=== PATIENT | female | born 1960 | race Caucasian/White ===

== ENCOUNTER → 2024-11-19 09:04 | Outpatient (REF) | payer OTHER, SELFPAY | LOC: RCS 09:04 | PROVIDERS: ATTENDING PHYSICIAN Nurse Practitioner; FAMILY PHYSICIAN Family Medicine; OTHER PHYSICIAN Internal Medicine Cardiovascular Disease | DX: R00.2 Palpitations (principal) | CPT/HCPCS: 93306 ==

== ENCOUNTER → 2024-11-21 08:02 | Outpatient (REF) | payer OTHER, SELFPAY | LOC: RCS 08:02 | PROVIDERS: ATTENDING PHYSICIAN Nurse Practitioner; FAMILY PHYSICIAN Family Medicine; REFERRING PHYSICIAN Internal Medicine Cardiovascular Disease | DX: R07.89 Other chest pain (principal) | CPT/HCPCS: 93017; 93350 ==

== ENCOUNTER 2025-05-18 15:30 | Emergency (ER) | payer MEDICARE, OTHER, SELFPAY ==
[2025-05-18 15:46] VITALS: BP 140/95
--- NOTE | 2025-05-18 18:04 | ED.GENMED ---
History of Present Illness
General
Chief Complaint: DVT/Possible Blood Clot
Source: patient
Exam Limitations: none
Time Seen by Provider: 05/18/25 17:12
Nursing documentation reviewed up to this point in time: agreed with
History of Present Illness
History of Present Illness:
see MDM
Review of Systems
Review of Systems
Allergies reviewed?: Yes
All Other Systems: Not applicable
Phy Exam
Physical Exam
Physical Exam:
GENERAL: Alert , in no apparent distress, comfortable at rest
HEAD: NCAT
CV: 2+ DP PULSES B/L no crackles,
NEUROLOGICAL: Alert and oriented, no focal neuro deficits, , 5/5 strength, sensation intact, ambulation slight limp right leg
SKIN: Warm and dry, very minimal pink skin chnages, L lowre extremity
MUSCULOSKELETAL: Circumferential severe edema of the left ankle and foot, some mild edema that is pitting to the left lower extremity below the knee, nontender except with palpation to the ankle and some stiffness with range of motion of the ankle
on the left side, there is a great pulse and cap refills intact
PSYCH: Normal and appropriate interaction.
Course
Orders/Labs/Results
Orders:
Orders
05/18/25 15:53
US Periph Venous LOWER Ext LT Urgent
Comment:
Reason For Exam: Swelling and pain
05/18/25 17:58
Ankle, left 3 view CR [CR Ankle - Left Min 3 Views ] Urgent
Comment:
Reason For Exam: left ankle edema
05/18/25 17:59
CR Chest - 2 Views Urgent
Comment:
Reason For Exam: LLE edema
05/18/25 18:08
Complete Blood Count/With Diff Urgent
Comprehensive Metabolic Panel Urgent
NT-proBNP Urgent
Uric Acid Urgent
05/18/25 19:12
Cephalexin Monohydrate [Keflex] 500 mg PO NOW STA
05/18/25 18:08
05/18/25 18:08
Vital Signs
Initial and Last Documented VS:
Initial Vital Signs
Temp Pulse Resp BP Pulse Ox
37.3 C 74 16 140/95 98
05/18/25 15:46 05/18/25 15:46 05/18/25 15:46 05/18/25 15:46 05/18/25 15:46
Last Documented Vital Signs
Temp Pulse Resp BP Pulse Ox
37.3 C 74 16 140/95 98
05/18/25 15:46 05/18/25 15:46 05/18/25 15:46 05/18/25 15:46 05/18/25 18:05
MDM/Problems Addressed
Differential Diagnosis Includes:
ssee MDM
MDM/Problems Addressed:
Note:
CHIEF COMPLAINT(S)
Swelling and pain in the left foot and leg.
HISTORY OF PRESENT ILLNESS
The patient is a 65-year-old female who presents with a one-month history of left foot swelling, noted initially in the foot and subsequently extending up the leg. Associated with the swelling is significant pain, now involving the ankle, described
as 'unbelievable pain to walk.' The swelling and pain are particularly worse during the day, showing some improvement overnight, but not resolving completely. The leg has also progressively felt hot, but without itchiness. There is no history of
trauma recalled by the patient, though she has a history of a prior foot fracture.
T The patient described previous experiences of similar symptoms occurring years ago but it was both ankles were swollen, which eventually resolved. 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
episodes of syncope. She takes Atenolol and Duloxetine, and not currently on any anticoagulants.
just started mounjaro
PAST MEDICAL AND SURGICAL HISTORY
The patient has a pacemaker for atrial fibrillation and a past history of syncope episodes.
CHRONIC MEDICAL CONDITIONS SIGNIFICANTLY AFFECTING CARE
The patient has a history of atrial fibrillation and bradycardia.
MEDICATIONS
- Atenolol (half dose)
- Duloxetine
- Various supplements (not specified)
- No anticoagulants
PHYSICAL EXAM
- Nursing notes reviewed and vital signs reviewed.
- fairly severe foot/ankle swlling, mild calf swelling, very faint pink skin of the LLE, with warmth; no wounds; nontender to calf, mild pain with ankle ROM
There is no evidence of arterial circulation compromise.
PLAN
- Obtain x-ray of the ankle to rule out fracture or other bony abnormalities.
- Obtain chest x-ray to check for fluid accumulation.
- Perform blood work to assess kidney function, electrolytes, and infection markers.
- Consider starting antibiotics based on clinical assessment and test results.
- Recommend non-admission, pending test results, with outpatient follow-up and consultation with bar welder for venous studies.
There is concern for potential venous insufficiency causing peripheral edema, but cellulitis is considered a possibility due to the warmth of the leg, although the examination suggested that increased warmth could be venous stasis-related. The
patient also experienced redness in the skin but believes this is due to peripheral edema. No symptoms suggestive of systemic infection or heart failure were noted.
The plan includes further evaluation through x-rays of the ankle and chest, blood work including kidney function tests and complete blood count, and possibly starting antibiotics if indicated by test results.
DIFFERENTIAL DIAGNOSIS
The Differential Diagnosis includes, in no particular order and is not limited to:
1. Venous insufficiency
2. Cellulitis
3. Gout
4. Pseudo-gout
5. Deep vein thrombosis (ruled out by ultrasound)
6. Heart failure (less likely due to unilateral swelling)
7. Traumatic injury
8. Rheumatoid arthritis
9. Lymphedema
10. Peripheral neuropathy
CARE-UPDATE
05/18/25 - 19:37
A recent evaluation revealed no acute fracture in the patients ankle, though there is evidence of a past minor injury with a tiny cortical separation. The absence of calcium deposition rules out pseudo gout. The patients chest is clear, heart size
is normal, kidneys are functioning properly, and there are no signs of congestive heart failure. The swelling is likely due to peripheral edema, with prolonged blood pooling turning the area red and warm. Dermatitis is suspected, but not an active
infection, as the white blood cell count is normal and there is no fever. Keflex, an antibiotic, has been prescribed twice daily for preventive reasons. Recommend wearing a compression stocking and consulting a vascular specialist for further
assessment. A water pill is not currently advised due to the unilateral nature of the swelling. Monitoring the condition for potential skin cracks and infection is advised.
*Pulse Oximetry
SaO2: 98
Oxygen Mode of Delivery: Room air
Patient hypoxic: no (98)
*Critical Care Note
Total Time (30-74mins, 75-104mins- exclusive of procedures): Not Applicable
ED Attending Note
-
Portions of this chart may have been created with voice recognition software.� Occasional wrong word or��sound alike� substitutions may have occurred due to the inherent limitations of voice recognition software.
Discharge Plan
Departure
Patient Disposition: Home (Routine Discharge)
Date of Disposition: 05/18/25
Time of Disposition: 19:26
Patient with high blood pressure during this ER visit?: No
Condition: Fair
Covid-19: Not Applicable
Discharge Problem:
Peripheral edema, Venous stasis dermatitis
Instructions: Swelling
Prescriptions:
New
cephalexin 500 mg capsule
500 mg PO Q8H Qty: 21 0RF
Referrals:
Jeremiah Huang DO [Family Provider, Family Practice] - Follow up in 2-3 days
Jeremiah Scott III, MD [Active, Vascular Surgery] - Follow up in 5-7 days
Activity Restrictions/Additional Instructions:
Provide entirely sure the cause of your symptoms but your workup here is very reassuring that this is not an infection. There is no blood clot. Try compression stockings during the day and take them off at night.
Just in case you are starting to get a cellulitis or skin infection I am starting you on antibiotics however I think this is really more of just blood pooling, something called venous stasis dermatitis. Watch for worsening of the redness, worsening
swelling or pain, fever, inability to walk and return for these. Otherwise you may need to see a vein specialist. Please call vascular doctor for follow-up. Return for any concerns
unti lyou get the compression stocking you can abimbola wrap your ankle
Interventions
Interventions:
*Risk Screen - Suicide Last Done: 05/18/25 18:19
*General Assessment Last Done: 05/18/25 18:19
*Neglect/Abuse Screening Last Done: 05/18/25 18:19
*ED- Fall Risk Assessment Last Done: 05/18/25 18:19
*ED COVID-19 Vaccine History Last Done: 05/18/25 18:19
*Nursing Disposition Last Done: 05/18/25 19:49
ED- Cardiac Assessment Last Done: 05/18/25 18:19
ED- Pulmonary Assessment Last Done: 05/18/25 18:19
ED-Peripheral Vascular Assessment Last Done: 05/18/25 18:19
ED-Skin Assessment Last Done: 05/18/25 18:19
Discharge Date and Time
Discharge Date/Time: 05/18/25 19:50
Print Language: ARMENIAN
[2025-05-18 18:23] LABS: Hematocrit 42.0 % (37.0-47.0); Hemoglobin 14.1 g/dL (12.0-16.0); Mean Corp Hgb Conc. 33.6 g/dL (33.0-37.0); Mean Corpuscular Volume 92.3 fL (81.0-99.0); Nucleated Red Blood Cells % 0 %; Platelet Count 253 10^3/uL (130-400); Red Cell Dist. Width 11.8 % (11.5-14.5)
[2025-05-18 18:44] LABS: ALT (SGPT) 23 U/L (0-35); AST (SGOT) 26 U/L (14-36); Albumin 4.6 g/dl (3.5-5.0); Alkaline Phosphatase 73 U/L (38-126); Blood Urea Nitrogen 17 mg/dl (7-17); Calcium 10.1 mg/dl (8.4-10.2); Carbon Dioxide 28 mmol/L (22-30); Chloride 104 mmol/L (98-107); Glucose 90 mg/dl (70-99); Potassium 4.8 mmol/L (3.5-5.1); Sodium 138 mmol/L (135-145); Total Protein 7.6 g/dl (6.3-8.2); Uric Acid 4.9 mg/dl (2.5-6.2); eGFR > 60.00
[2025-05-18] MEDS: KEFLEX 500 MG PO (19:20)
== END 2025-05-18 19:50 | disposition home or self-care (01) ==
LOC: EMR 15:30
PROVIDERS: Physician Assistant; EMERGENCY PHYSICIAN Emergency Medicine; FAMILY PHYSICIAN Family Medicine
DX: R60.0 Localized edema (principal); I87.2 Venous insufficiency (chronic) (peripheral); I48.91 Unspecified atrial fibrillation; Z95.0 Presence of cardiac pacemaker
CPT/HCPCS: 99284; 71046; 73610; 80053; 83880; 84550; 85025; 93971

== ENCOUNTER → 2025-06-19 13:36 | Outpatient (REF) | payer MEDICARE, OTHER, SELFPAY | LOC: RAD 13:36 | PROVIDERS: ATTENDING PHYSICIAN Registered Nurse; FAMILY PHYSICIAN Family Medicine; OTHER PHYSICIAN Internal Medicine Cardiovascular Disease; OTHER PHYSICIAN Surgery Vascular Surgery | DX: M79.89 Other specified soft tissue disorders (principal); I49.5 Sick sinus syndrome; Z95.0 Presence of cardiac pacemaker; M79.605 Pain in left leg | CPT/HCPCS: 93971; 93978 ==